=== PATIENT | female | born 1955 | race Asian ===

== ENCOUNTER → 2016-08-25 | Outpatient (CLI) | payer OTHER ==
--- NOTE | 2016-08-25 10:35 | MA ---
Digital Screening Mammogram History: Bilateral breast implants. Screening mammogram. Breast parenchymal density: Type C density. Technique: Four views of each breast are obtained including CC and oblique lateral Gayla (implant di splaced) and non-Gayla (implant not displaced) views. CAD is utilized using the mWaterD product. Comparison: March 27, 2014; November 14, 2012. Findings: Bilateral breast implants are in place. Within the upper outer left breast, there is a poss ible developing nodule versus overlapping breast parenchymal tissue. No additional masses are seen wi thin either breast. There are no significant clusters of microcalcifications. The axilla are clear. Impression: Possible developing nodule versus overlapping breast parenchymal tissue upper outer left breast. Recommendation: Compression is recommended of the left breast in CC and mediolateral oblique projecti ons, as well as a 90-degree lateral view for further characterization. Additional imaging evaluation on the left is needed. BI-RADS 0. [facility] will send a result letter to the patient. Negative mammography should not preclude additional workup of a clinically suspicious finding. The patient's information is entered into a reminder system with a target due date for her next mammo gram.
== END ==
LOC: BRMIMAGING 08:09
PROVIDERS: ATTEND Family Medicine
DX: Z12.31 Encounter for screening mammogram for malignant neoplasm of breast (principal)
CPT/HCPCS: G0202

== ENCOUNTER → 2016-09-08 | Outpatient (CLI) | payer OTHER ==
--- NOTE | 2016-09-08 09:29 | MA ---
Left Diagnostic Digital Mammogram with iCAD Clinical Indications: Possible developing nodule on recent screening mammogram. Technique: Digital spot compression CC, spot mediolateral oblique and true lateral views. This exami nation was processed by the iCAD computer-aided detection system. Comparison: Recent mammogram 2016, 2013, 2012. Breast Density: C, 50-75%. Findings: Previous nodular density appears less conspicuous on the spot compression views in the ralph on of dense parenchymal pattern. This may represent dense overlapping breast parenchyma. However, giv en the dense parenchymal pattern, additional imaging with ultrasound is recommended. Impression: ACR BI-RADS 0: Needs further imaging. Recommendation: Ultrasound of the upper-outer quadrant of the left breast which will be subsequently performed. Please see ultrasound report and recommendations. [facility] will send a result letter to the patient. [facility] will send a result letter to the patient.
--- NOTE | 2016-09-08 09:50 | US ---
Ultrasound left Breast History: Nodular density of the left breast upper outer quadrant on mammogram. Comparison: Prior mammograms most recent from today. Technique: Ultrasound imaging of the upper outer quadrant of the left breast from the 12 to the 3 o'c lock position was performed by the general office clerk and me. Findings: No ultrasound evidence of dominant solid or cystic lesion in the left breast upper outer qu adrant. Breast implant noted. Mammogram and ultrasound findings are benign without suspicious finding s. Impression: 1. BI-RADS 1: Negative ultrasound of the left breast. 2. No ultrasound evidence of dominant solid or cystic lesion in the left breast upper outer quadrant. 3. Recommend annual screening mammograms with next mammogram in August 2017. Findings and recommendations have been discussed with the patient who agrees with the plan.
== END ==
LOC: BRMIMAGING 08:49
DX: R92.8 Other abnormal and inconclusive findings on diagnostic imaging of breast (principal)
CPT/HCPCS: G0206

== ENCOUNTER → 2017-10-27 | Outpatient (CLI) | payer OTHER | LOC: BRMIMAGING 07:58 | PROVIDERS: ATTEND Family Medicine | DX: Z12.31 Encounter for screening mammogram for malignant neoplasm of breast (principal) ==

== ENCOUNTER → 2018-10-30 | Outpatient (CLI) | payer OTHER | LOC: BRMIMAGING 10:55 | PROVIDERS: ATTEND Family Medicine | DX: Z12.31 Encounter for screening mammogram for malignant neoplasm of breast (principal) ==